=== PATIENT | female | born 1990 | race African-American/Black ===

== ENCOUNTER 2020-05-05 02:35 | Inpatient (IN) | payer OTHER ==
[2020-05-05] MEDS ORDERED: BUTORPHANOL TARTRATE 1 MG/ML VIAL IVPB ONE (03:30)
[2020-05-05] MEDS ORDERED: PROMETHAZINE HCL 25 MG/1 ML VIAL IVPB ONE (03:30)
[2020-05-05] MEDS ORDERED: ELECTROLYTE-148 SOLN 500 ML IV ONE (03:30)
[2020-05-05] MEDS ORDERED: BUTORPHANOL TARTRATE 2 MG/ML VIAL ONE (03:51)
[2020-05-05] MEDS ORDERED: PROMETHAZINE HCL 25 MG/1 ML VIAL ONE (03:51)
[2020-05-05] MEDS ORDERED: ELECTROLYTE-148 SOLN 1,000 ML IV SCH ×2 (04:00→08:30)
[2020-05-05 04:01] LABS: BASO % 0.2 % (0-2.0); EOS % 0.5 % (0-4.5); HEMOGLOBIN 12.1 GM/dL (10.7-15.3); LYMPH % 14.1 % (8-40); MCHC 33.8 g/dl (32.0-36.0); MEAN CELL VOLUME 88.8 fl (80-96); MEAN PLT VOLUME 9.3 fl (7.5-11.1); MONO % 10.1 % (3.8-10.2); NEUT % 75.1 % (42.8-82.8); PLATELET COUNT 186 K/MM3 (134-434); RBC 4.05 M/mm3 (3.60-5.2); RDW 13.9 % (11.6-15.6); WHITE BLOOD COUNT 9.1 K/mm3 (4.0-10.0)
[2020-05-05 04:09] LABS: INR 0.95 (0.83-1.09); PROTHROMBIN TIME (PATIENT) 11.5 SEC (9.7-13.0)
[2020-05-05 04:11] LABS: ACTIVATED PTT 24.8 SECONDS (25.2-36.5)
[2020-05-05 04:13] VITALS: BMI 37.8
[2020-05-05 04:18] LABS: POTASSIUM 4.2 mmol/L (3.5-5.1)
[2020-05-05 04:20] LABS: BLOOD UREA NITROGEN 9.8 mg/dL (7-18); CALCIUM 8.7 mg/dL (8.5-10.1)
[2020-05-05 04:24] LABS: CREATININE 0.8 mg/dL (0.55-1.3)
[2020-05-05] MEDS ORDERED: FENTANYL/BUPIVACAINE/NS/PF - PCEA - 50 ML DISP.SYRIN EP ONE ×2 (08:38→12:28)
[2020-05-05] MEDS ORDERED: OXYTOCIN 30 UNITS in 0.9% NS 30 UNIT/500 ML INFUS.BAG IVPB SCH (08:45)
[2020-05-05] MEDS ORDERED: NALOXONE HCL 0.4 MG/ML VIAL IVPUSH PRN (08:46)
[2020-05-05] MEDS ORDERED: BUPIVACAINE HCL/PF 0.25% (2.5MG/ML) 10 ML VIAL ONE ×2 (08:48→12:35)
[2020-05-05 09:03] LABS: SYPHILIS W/ RPR CONF NON-REACTIVE (NONREACTIVE)
[2020-05-05] MEDS: FENTANYL/BUPIVACAINE/NS/PF - PCEA - 50 ML DISP.SYRIN EP SCH (09:10)
[2020-05-05 09:33] LABS: HIV INTERPRETATION NEGATIVE (NEGATIVE)
[2020-05-05] MEDS ORDERED: OXYTOCIN 30 UNITS in 0.9% NS 30 UNIT/500 ML INFUS.BAG IVPB ONE (10:00)
[2020-05-05] MEDS ORDERED: PCA PUMP NR ONE (12:29)
[2020-05-05] MEDS ORDERED: OXYTOCIN 20 UNITS in 0.9% NS 20 UNIT/1,000 ML INFUS.BAG IV ONE ×2 (14:42→18:38)
[2020-05-05] MEDS ORDERED: LIDOCAINE HCL 1% PRESERVATIVE FREE - 30ML VIAL ONE (14:42)
[2020-05-05] MEDS ORDERED: oxyCODONE HCL 5 MG TABLET PO PRN (16:04)
[2020-05-05] MEDS ORDERED: BENZOCAINE 20% 57 GM BOTTLE TP PRN (16:04)
[2020-05-05] MEDS ORDERED: BISACODYL 10 MG SUPP.RECT RC PRN (16:04)
[2020-05-05] MEDS ORDERED: METHYLERGONOVINE MALEATE 0.2 MG/1 ML AMP IM PRN (16:04)
[2020-05-05] MEDS ORDERED: WITCH HAZEL 50% (TUCKS) 40 PAD/JAR PAD TP PRN (16:04)
[2020-05-05] MEDS ORDERED: BENZOCAINE 28 GM HEMORRHOIDAL OINTMENT TP PRN (16:04)
[2020-05-05] MEDS ORDERED: OXYTOCIN 20 UNITS in 0.9% NS 20 UNIT/1,000 ML INFUS.BAG IV SCH (16:15)
[2020-05-05] MEDS ORDERED: ACETAMINOPHEN 325 MG TABLET (FP) ONE (16:44)
[2020-05-05] MEDS ORDERED: IBUPROFEN 600 MG TABLET (FP) PO ONE (16:44)
[2020-05-05] MEDS: IBUPROFEN 600 MG TABLET (FP) PO PRN ×2 (16:45→21:07)
[2020-05-05] MEDS: ACETAMINOPHEN 325 MG TABLET (FP) PO PRN ×2 (16:47→21:06)
[2020-05-05] MEDS: NIFEdipine E.R. 30 MG TABLET PO SCH (20:05)
[2020-05-05] MEDS: LABETALOL HCL 200 MG TABLET (FP) PO SCH (21:43)
[2020-05-06] MEDS: IBUPROFEN 600 MG TABLET (FP) PO PRN ×3 (03:23→20:06)
[2020-05-06] MEDS: ACETAMINOPHEN 325 MG TABLET (FP) PO PRN ×3 (03:23→20:07)
[2020-05-06 07:57] LABS: BASO % 0.4 % (0-2.0); EOS % 0.8 % (0-4.5); HEMATOCRIT 30.9 % (32.4-45.2); HEMOGLOBIN 10.1 GM/dL (10.7-15.3); LYMPH % 18.8 % (8-40); MCH 29.1 pg (25.7-33.7); MCHC 32.7 g/dl (32.0-36.0); MEAN PLT VOLUME 8.9 fl (7.5-11.1); PLATELET COUNT 156 K/MM3 (134-434); RBC 3.48 M/mm3 (3.60-5.2); RDW 13.8 % (11.6-15.6); WHITE BLOOD COUNT 10.9 K/mm3 (4.0-10.0)
[2020-05-06] MEDS: PRENATAL VITAMINS W/ FOLIC ACID TABLET (FP) PO SCH (09:22)
[2020-05-06] MEDS: NIFEdipine E.R. 30 MG TABLET PO SCH (09:22)
[2020-05-06] MEDS: LABETALOL HCL 200 MG TABLET (FP) PO SCH ×2 (09:22→21:24)
[2020-05-06] MEDS ORDERED: DIPHTH,PERTUSS(ACELL),TET 0.5 ML DISP.SYRIN IM ONE (10:00)
[2020-05-06] MEDS ORDERED: SENNOSIDES/DOCUSATE COMBO (SENNA PLUS) TABLET (UD) PO PRN (22:00)
[2020-05-07] MEDS: ACETAMINOPHEN 325 MG TABLET (FP) PO PRN (08:43)
[2020-05-07] MEDS: IBUPROFEN 600 MG TABLET (FP) PO PRN (08:43)
[2020-05-07] MEDS: FENTANYL/BUPIVACAINE/NS/PF - PCEA - 50 ML DISP.SYRIN EP SCH (09:12)
[2020-05-07 09:14] VITALS: BP 131/88; PULSE 87; TEMP 98
[2020-05-07] MEDS: LABETALOL HCL 200 MG TABLET (FP) PO SCH (09:42)
[2020-05-07] MEDS: NIFEdipine E.R. 30 MG TABLET PO SCH (09:42)
[2020-05-07] MEDS: PRENATAL VITAMINS W/ FOLIC ACID TABLET (FP) PO SCH (09:42)
== END 2020-05-07 12:38 | disposition home or self-care (01) | DRG 806 ==
LOC: JLDR 02:35 → J3W 19:30
PROVIDERS: ADMIT Obstetrics & Gynecology; ATTEND Obstetrics & Gynecology
PROC: 10E0XZZ Delivery of Products of Conception, External Approach (ICD-10-PCS; principal; 2020-05-05)
PROC: 10907ZC Drainage of Amniotic Fluid, Therapeutic from Products of Conception, Via Natural or Artificial Opening (ICD-10-PCS; 2020-05-05)
DX: O48.0 Post-term pregnancy (principal); O98.32 Other infections with a predominantly sexual mode of transmission complicating childbirth; Z37.0 Single live birth; A60.09 Herpesviral infection of other urogenital tract; O70.0 First degree perineal laceration during delivery; Z3A.41 41 weeks gestation of pregnancy; Z91.018 Allergy to other foods
CPT/HCPCS: 36415; 59409; 80048; 85025; 85610; 85730; 86780; 86850; 86900; 86901; 87389; 90715; C9803; U0003

== ENCOUNTER 2021-12-10 06:39 | Inpatient (IN) | payer OTHER ==
[2021-12-10 08:19] VITALS: BMI 36.0
[2021-12-10] MEDS ORDERED: BUTORPHANOL TARTRATE 1 MG/ML VIAL IVPB ONE (08:27)
[2021-12-10] MEDS ORDERED: PROMETHAZINE HCL 25 MG/1 ML VIAL IVPUSH ONE (08:27)
[2021-12-10] MEDS ORDERED: LABETALOL HCL 200 MG TABLET (FP) PO ONE (08:29)
[2021-12-10] MEDS: DEXTROSE 5%-LACTATED RINGERS 1,000 ML IV SCH ×2 (08:30→16:16)
[2021-12-10] MEDS ORDERED: OXYTOCIN 30 UNITS in 0.9% NS 30 UNIT/500 ML INFUS.BAG IVPB ONE (08:31)
[2021-12-10] MEDS ORDERED: LABETALOL HCL 200 MG TABLET (FP) ONE (08:31)
[2021-12-10] MEDS: OXYTOCIN 30 UNITS in 0.9% NS 30 UNIT/500 ML INFUS.BAG IVPB SCH (08:35)
[2021-12-10 08:50] LABS: BASO % 0.5 % (0-2.0); EOS % 1.8 % (0-4.5); HEMATOCRIT 29.9 % (32.4-45.2); HEMOGLOBIN 9.9 GM/dL (10.7-15.3); MCH 27.9 pg (25.7-33.7); MCHC 33.1 g/dl (32.0-36.0); MEAN CELL VOLUME 84.2 fl (80-96); MEAN PLT VOLUME 8.3 fl (7.5-11.1); MONO % 12.7 % (3.8-10.2); PLATELET COUNT 191 10^3/uL (134-434); RBC 3.54 M/mm3 (3.60-5.2); RDW 14.7 % (11.6-15.6); WHITE BLOOD COUNT 5.7 K/mm3 (4.0-10.0)
[2021-12-10 08:58] LABS: INR 1.01 (0.83-1.09); PROTHROMBIN TIME (PATIENT) 11.6 SEC (9.7-13.0)
[2021-12-10 09:00] LABS: ACTIVATED PTT 25.3 SECONDS (25.2-36.5)
[2021-12-10 09:08] LABS: CALCIUM 8.3 mg/dL (8.5-10.1)
[2021-12-10 09:09] LABS: ALBUMIN 2.4 g/dl (3.4-5.0)
[2021-12-10 09:11] LABS: URIC ACID 4.6 mg/dL (2.6-7.2)
[2021-12-10 09:12] LABS: CREATININE 0.7 mg/dL (0.55-1.3)
[2021-12-10 09:13] LABS: TOT PROT 6.2 g/dl (6.4-8.2)
[2021-12-10 09:14] LABS: BILIRUBIN,TOTAL 0.1 mg/dL (0.2-1)
[2021-12-10 09:51] LABS: EPI CELLS >36 /uL (0-25.1); HYALINE CASTS 10 /uL (0-3.1); PH,URINE 6.5 (5.0-8.0); URINE APPEARANCE CLOUDY; URINE BACTERIA 4795 /uL (0-1359); URINE BILIRUBIN NEGATIVE (NEGATIVE); URINE COLOR YELLOW; URINE GLUCOSE (UA) NEGATIVE (NEGATIVE); URINE KETONE TRACE (NEGATIVE); URINE LEUK ESTERASE TRACE (NEGATIVE); URINE NITRITE NEGATIVE (NEGATIVE); URINE PROTEIN 1+ (NEGATIVE); URINE RBC 73 /uL (0-23.9); URINE WBC 72 /uL (0-25.8)
[2021-12-10] MEDS ORDERED: FENTANYL/BUPIVACAINE/NS/PF - PCEA - 50 ML DISP.SYRIN EP ONE ×2 (19:18→23:04)
[2021-12-10 19:23] LABS: HIV INTERPRETATION NEGATIVE (NEGATIVE)
[2021-12-10] MEDS ORDERED: NALOXONE HCL 0.4 MG/ML VIAL IVPUSH PRN (20:23)
[2021-12-10] MEDS ORDERED: FENTANYL/BUPIVACAINE/NS/PF - PCEA - 50 ML DISP.SYRIN EP SCH (20:30)
[2021-12-10] MEDS ORDERED: OXYTOCIN 20 UNITS in 0.9% NS 20 UNIT/1,000 ML INFUS.BAG IV ONE (22:41)
[2021-12-10] MEDS ORDERED: LIDOCAINE HCL 1% PRESERVATIVE FREE - 30ML VIAL ONE (22:48)
[2021-12-11] MEDS ORDERED: BISACODYL 10 MG SUPP.RECT RC PRN (00:07)
[2021-12-11] MEDS ORDERED: BENZOCAINE 28 GM HEMORRHOIDAL OINTMENT TP PRN (00:07)
[2021-12-11] MEDS ORDERED: WITCH HAZEL 50% (TUCKS) 40 PAD/JAR PAD TP PRN (00:07)
[2021-12-11] MEDS ORDERED: BENZOCAINE 20% 57 GM BOTTLE TP PRN (00:07)
[2021-12-11] MEDS ORDERED: METHYLERGONOVINE MALEATE 0.2 MG/1 ML AMP IM PRN (00:07)
[2021-12-11] MEDS: LABETALOL HCL 200 MG TABLET (FP) PO SCH ×3 (00:14→21:10)
[2021-12-11] MEDS ORDERED: OXYTOCIN 20 UNITS in 0.9% NS 20 UNIT/1,000 ML INFUS.BAG IV SCH (00:15)
[2021-12-11] MEDS: ACETAMINOPHEN 325 MG TABLET (FP) PO PRN ×2 (01:56→21:10)
[2021-12-11] MEDS: oxyCODONE HCL 5 MG TABLET PO PRN ×2 (04:20→10:45)
[2021-12-11] MEDS ORDERED: oxyCODONE HCL 5 MG TABLET PO ONE (05:15)
[2021-12-11 08:39] LABS: BASO % 0.2 % (0-2.0); EOS % 0.4 % (0-4.5); HEMATOCRIT 26.5 % (32.4-45.2); HEMOGLOBIN 8.8 GM/dL (10.7-15.3); LYMPH % 13.5 % (8-40); MCH 28.1 pg (25.7-33.7); MCHC 33.3 g/dl (32.0-36.0); MEAN CELL VOLUME 84.3 fl (80-96); MEAN PLT VOLUME 8.4 fl (7.5-11.1); MONO % 11.7 % (3.8-10.2); NEUT % 74.2 % (42.8-82.8); PLATELET COUNT 160 10^3/uL (134-434); RBC 3.14 M/mm3 (3.60-5.2); RDW 14.7 % (11.6-15.6); WHITE BLOOD COUNT 8.8 K/mm3 (4.0-10.0)
[2021-12-11] MEDS: PRENATAL VITAMINS W/ FOLIC ACID TABLET (FP) PO SCH (09:25)
[2021-12-11] MEDS: IBUPROFEN 600 MG TABLET (FP) PO PRN ×2 (09:25→18:06)
[2021-12-11] MEDS: FERROUS SO4 325 MG TABLET (FP) PO SCH (17:55)
[2021-12-11] MEDS: OXYTOCIN 30 UNITS in 0.9% NS 30 UNIT/500 ML INFUS.BAG IVPB SCH (19:23)
[2021-12-11] MEDS: DEXTROSE 5%-LACTATED RINGERS 1,000 ML IV SCH (19:23)
[2021-12-12] MEDS: IBUPROFEN 600 MG TABLET (FP) PO PRN (05:56)
[2021-12-12 06:25] VITALS: TEMP 98.3
[2021-12-12] MEDS: FERROUS SO4 325 MG TABLET (FP) PO SCH (08:35)
[2021-12-12] MEDS: ACETAMINOPHEN 325 MG TABLET (FP) PO PRN (08:35)
[2021-12-12 09:44] VITALS: BP 148/91; PULSE 86
[2021-12-12] MEDS: LABETALOL HCL 200 MG TABLET (FP) PO SCH (09:52)
[2021-12-12] MEDS: PRENATAL VITAMINS W/ FOLIC ACID TABLET (FP) PO SCH (09:52)
[2021-12-12] MEDS ORDERED: SENNOSIDES/DOCUSATE COMBO (SENNA PLUS) TABLET (UD) PO PRN (22:00)
== END 2021-12-12 13:15 | disposition home or self-care (01) | DRG 807 ==
LOC: JLDR 06:39 → J3W 12-11 01:33
PROVIDERS: ADMIT Obstetrics & Gynecology; ATTEND Obstetrics & Gynecology
PROC: 10E0XZZ Delivery of Products of Conception, External Approach (ICD-10-PCS; principal; 2021-12-10)
PROC: 3E033VJ Introduction of Other Hormone into Peripheral Vein, Percutaneous Approach (ICD-10-PCS; 2021-12-10)
DX: O14.04 Mild to moderate pre-eclampsia, complicating childbirth (principal); Z37.0 Single live birth; Z3A.39 39 weeks gestation of pregnancy
CPT/HCPCS: 36415; 59409; 80053; 81003; 84550; 85025; 85610; 85730; 86780; 86850; 86900; 86901; 87389; C9803-CS; U0003; U0005

== ENCOUNTER 2023-08-30 06:56 | Inpatient (IN) | payer OTHER ==
[2023-08-30 08:38] VITALS: BMI 39.5
[2023-08-30] MEDS ORDERED: LABETALOL HCL 200 MG TABLET (FP) ONE ×2 (08:53→23:12)
[2023-08-30] MEDS: LABETALOL HCL 200 MG TABLET (FP) PO ONE (08:59)
[2023-08-30] MEDS: ELECTROLYTE-148 SOLN 1,000 ML IV SCH ×2 (09:54→19:17)
[2023-08-30 10:23] LABS: BASO % 0.6 % (0-2.0); EOS % 1.3 % (0-4.5); HEMATOCRIT 28.9 % (32.4-45.2); HEMOGLOBIN 9.4 GM/dL (10.7-15.3); LYMPH % 19.6 % (8-40); MCH 25.9 pg (25.7-33.7); MCHC 32.6 g/dl (32.0-36.0); MEAN CELL VOLUME 79.2 fl (80-96); MEAN PLT VOLUME 7.8 fl (7.5-11.1); MONO % 10.9 % (3.8-10.2); NEUT % 67.6 % (42.8-82.8); PLATELET COUNT 187 10^3/uL (134-434); RBC 3.65 M/mm3 (3.60-5.2); RDW 17.3 % (11.6-15.6); WHITE BLOOD COUNT 4.4 K/mm3 (4.0-10.0)
[2023-08-30 10:34] LABS: INR 0.99 (0.83-1.09); PROTHROMBIN TIME (PATIENT) 11.5 SEC (9.7-13.0)
[2023-08-30 10:37] LABS: ACTIVATED PTT 24.7 SECONDS (25.2-36.5)
[2023-08-30 10:41] LABS: POTASSIUM 4.2 mmol/L (3.5-5.1)
[2023-08-30 10:42] LABS: CALCIUM 8.9 mg/dL (8.5-10.1)
[2023-08-30] MEDS ORDERED: OXYTOCIN 30 UNITS in 0.9% NS 30 UNIT/500 ML INFUS.BAG IVPB ONE ×2 (10:42→19:50)
[2023-08-30 10:43] LABS: BLOOD UREA NITROGEN 8.9 mg/dL (7-18)
[2023-08-30 10:46] LABS: CREATININE 0.6 mg/dL (0.55-1.3)
[2023-08-30] MEDS: OXYTOCIN 30 UNITS in 0.9% NS 30 UNIT/500 ML INFUS.BAG IVPB SCH (10:56)
[2023-08-30 12:01] LABS: HIV INTERPRETATION NEGATIVE (NEGATIVE)
[2023-08-30] MEDS ORDERED: AMPICILLIN - 2 GM in SODIUM CHLORIDE 100 ML IVPB ONE (13:59)
[2023-08-30] MEDS ORDERED: SODIUM CHLORIDE 100 ML IVPB ONE (14:00)
[2023-08-30] MEDS ORDERED: AMPICILLIN SODIUM 2 GM VIAL ONE (14:01)
[2023-08-30] MEDS ORDERED: CLINDAMYCIN 900 MG PREMIX IVPB 900 MG/50 ML BAG IVPB ONE (14:10)
[2023-08-30] MEDS: CLINDAMYCIN 900 MG PREMIX IVPB 900 MG/50 ML BAG IVPB SCH (14:15)
[2023-08-30] MEDS ORDERED: FENTANYL/BUPIVACAINE/NS/PF - PCEA - 50 ML DISP.SYRIN EP ONE (14:38)
[2023-08-30] MEDS: FENTANYL/BUPIVACAINE/NS/PF - PCEA - 50 ML DISP.SYRIN EP SCH (14:57)
[2023-08-30] MEDS ORDERED: NALOXONE HCL 0.4 MG/ML VIAL IVPUSH PRN (15:57)
[2023-08-30] MEDS ORDERED: AMPICILLIN - 1 GM in SODIUM CHLORIDE 100 ML IVPB SCH (18:00)
[2023-08-30] MEDS: CITRIC ACID/SODIUM CITRATE 30 ML UNIT-DOSE CUP PO ONE (19:00)
[2023-08-30] MEDS ORDERED: morphine SULFATE/PF 1 MG/2 ML (2cc Syringe - QUVA) ONE (19:24)
[2023-08-30] MEDS ORDERED: morphine SULFATE/PF 1 MG/2 ML (2cc Syringe - QUVA) EP ONE (21:11)
[2023-08-30] MEDS ORDERED: ONDANSETRON 4 MG/2 ML VIAL IVPUSH PRN (21:11)
[2023-08-30] MEDS ORDERED: METHYLERGONOVINE MALEATE 0.2 MG/1 ML AMP IM PRN (21:13)
[2023-08-30] MEDS: NIFEdipine E.R. 30 MG TABLET PO SCH (21:32)
[2023-08-30] MEDS: OXYTOCIN 20 UNITS in 0.9% NS 20 UNIT/1,000 ML INFUS.BAG IV SCH (21:35)
[2023-08-30] MEDS ORDERED: CLINDAMYCIN 900 MG PREMIX IVPB 900 MG/50 ML BAG IVPB SCH (22:00)
[2023-08-30] MEDS ORDERED: ACETAMINOPHEN INJECTION 100 ML IVPB ONE (22:33)
[2023-08-30] MEDS: ACETAMINOPHEN 1000 MG/100 ML BAG IVPB PRN (22:35)
[2023-08-30] MEDS: LABETALOL HCL 200 MG TABLET (FP) PO SCH (23:15)
[2023-08-31] MEDS: IBUPROFEN 800 MG/8 ML IJ IVPB PRN (00:26)
[2023-08-31] MEDS: MAG HYDROX/AL HYDROX/SIMETH 30 ML UNIT-DOSE CUP PO ONE (00:52)
[2023-08-31 08:27] LABS: BASO % 0.4 % (0-2.0); EOS % 0.5 % (0-4.5); HEMATOCRIT 26.6 % (32.4-45.2); HEMOGLOBIN 8.4 GM/dL (10.7-15.3); LYMPH % 15.7 % (8-40); MCH 25.2 pg (25.7-33.7); MCHC 31.5 g/dl (32.0-36.0); MEAN CELL VOLUME 79.9 fl (80-96); MONO % 9.4 % (3.8-10.2); PLATELET COUNT 150 10^3/uL (134-434); RBC 3.33 M/mm3 (3.60-5.2); RDW 17.5 % (11.6-15.6); WHITE BLOOD COUNT 7.9 K/mm3 (4.0-10.0)
[2023-08-31] MEDS: FERROUS SO4 325 MG TABLET (FP) PO SCH (09:12)
[2023-08-31] MEDS: PRENATAL VITAMINS W/ FOLIC ACID TABLET (FP) PO SCH (09:12)
[2023-08-31] MEDS: ACETAMINOPHEN 325 MG TABLET (FP) PO PRN (14:55)
[2023-08-31] MEDS: SIMETHICONE 80 MG TAB.CHEW (FP) PO PRN (14:55)
[2023-08-31] MEDS: IBUPROFEN 600 MG TABLET (FP) PO PRN (20:09)
[2023-08-31] MEDS: SENNOSIDES/DOCUSATE COMBO (SENNA PLUS) TABLET (UD) PO PRN (20:10)
[2023-08-31] MEDS ORDERED: BISACODYL 10 MG SUPP.RECT RC PRN (21:13)
[2023-09-01] MEDS: oxyCODONE HCL 5 MG TABLET PO PRN ×2 (02:42→18:18)
[2023-09-02 06:30] VITALS: RESP 18
[2023-09-03 08:53] VITALS: BP 142/85; PULSE 111; TEMP 97.8
== END 2023-09-03 14:00 | disposition home or self-care (01) | DRG 788 ==
LOC: JLDR 06:56 → J3W 08-31 00:42
PROVIDERS: ADMIT Obstetrics & Gynecology; ATTEND Obstetrics & Gynecology
PROC: 10D00Z1 Extraction of Products of Conception, Low, Open Approach (ICD-10-PCS; principal; 2023-08-30)
DX: O10.92 Unspecified pre-existing hypertension complicating childbirth (principal); O48.0 Post-term pregnancy; Z3A.40 40 weeks gestation of pregnancy; O24.420 Gestational diabetes mellitus in childbirth, diet controlled; Z37.0 Single live birth
CPT/HCPCS: 36415; 80048; 82962; 85025; 85610; 85730; 86780; 86922; 87389; 88307-TC; J0131